=== PATIENT | male | born 1955 | race Caucasian/White ===

== ENCOUNTER 2016-11-16 01:40 | Emergency (ER) | payer BC ==
--- NOTE | 2016-12-20 15:38 | ER ---
ADMIT: 11/16/2016 RM/LOC: ER [facility] MR#: [id number] [address] [id number] REJI MENDEZ [address] [place] [address] [place] [id number] Emergency Room Report SEX: M AGE: 61 : 1955 DATE: 11/16/2016 A 61-year-old brought in for medical clearance prior to going to shelter. He apparently was a DUI patient tonight. The patient himself has no complaints. His vital signs are within normal parameters. Exam was unremarkable. The patient was medically cleared for shelter. No further recommendation. Sung Garcia MD/ tosinl JOB #: [id number] CC: Raj Fortune MD, Attending Physician Adolfo Bravo MD, Family Physician
== END 2016-11-16 02:00 | disposition home or self-care (01) ==
LOC: ER 01:40
DX: Z02.89 Encounter for other administrative examinations (principal); F17.200 Nicotine dependence, unspecified, uncomplicated; Z85.01 Personal history of malignant neoplasm of esophagus; Z79.82 Long term (current) use of aspirin; Z79.899 Other long term (current) drug therapy